=== PATIENT | female | born 1960 | race Caucasian/White ===

== ENCOUNTER 2023-05-25 09:47 | Emergency (ER) | payer MEDICAID, MEDICARE ==
[2023-05-25 10:11] VITALS: BP 132/86; O2SAT 96
--- NOTE | 2023-05-25 10:36 | XRAY Report ---
PROCEDURE: Shoulder 3 View RT INDICATIONS: trauma TECHNIQUE: 3 views of the shoulder were acquired. COMPARISON: None. FINDINGS: Bones: No fractures or dislocations. No suspicious bony lesions. Visualized ribs appear intact. Degenerative changes of the acromioclavicular and glenohumeral joints. Acromioclavicular and coracocl avicular intervals are maintained. Soft tissues: No suspicious soft tissue calcifications. The visualized lungs are within normal limi ts. IMPRESSION: Right shoulder without acute fracture or dislocation. If there is persistent clinical concern for a radiographically occult fracture, recommend immobilizat ion and repeat imaging in 10 to 14 days. Reviewed by: Curt Wolff MD on 05/25/2023 10:34 AM PDT Approved by: Curt Wolff MD on 05/25/2023 10:34 AM PDT Station ID: [id number]
[2023-05-25] MEDS ORDERED: LIDOCAINE PATCH 5% TOP STA (10:41)
[2023-05-25] MEDS ORDERED: oxyCODONE 5 MG TABLET PO STA (10:41)
--- NOTE | 2023-05-25 10:44 | ED Physician Documentation ---
PD HPI UPPER EXT INJURY - Stated complaint Stated Complaint: RT SHOULD PX - Chief complaint Chief Complaint: Ext Problem - History obtained from History obtained from: Patient - Additonal information Additional information: Patient is a 63-year-old female with recent diagnosis of lung cancer presenting for evaluation of right shoulder pain that has been present for the past 4-1/2 days. Patient states that she recently moved in with her son and was shampooing all with her carpets just prior to the onset of pain. She states that it was taking a long time because there is a lot of carpets and they were very dirty. She states since that time she has had pain in the right shoulder. She has tried ibuprofen and acetaminophen without any improvement. No known prior injuries to this area. No chest pain or shortness of air. No falls or head injuries. 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 - Past Surgical History Past Surgical History: Yes General: Splenectomy - Present Medications Home Medications: Ambulatory Orders Medication Instructions Recorded Confirmed Lidocaine Patch 5% [Lidoderm Patch] 1 patch TOP DAILY PRN #10 patch 05/25/23 Oxycodone HCl/Acetaminophen 1 each PO Q6H PRN #12 tablet 05/25/23 [Percocet 5-325 mg Tablet] - Allergies Allergies/Adverse Reactions: Allergies Allergy/AdvReac Type Severity Reaction Status Date / Time No Known Drug Allergies Allergy Verified 05/25/23 10:03 - Social History Does the pt smoke?: Yes Smoking Status: Current every day smoker Does the pt drink ETOH?: No Does the pt have substance abuse?: No - Immunizations Immunizations are current?: Yes PD ED PE NORMAL - General General: Alert and oriented X 3, No acute distress, Well developed/nourished - HEENT HEENT: Atraumatic, Moist mucous membranes, Pharynx benign - Neck Neck: Supple, no meningeal sign, No bony TTP - Cardiac Cardiac: RRR, Strong equal pulses - Respiratory Respiratory: No respiratory distress, Clear bilaterally - Extremities Extremities: No deformity, No edema, Other (Pain on range of motion of the right shoulder but able to abduct to at least 90 degrees and to touch the opposite shoulder with her right hand as well as range of motion behind her back) - Neuro Neuro: Alert and oriented X 3, No motor deficit, Normal speech Results - Vitals Vitals: Vital Signs - 24 hr 05/25/23 09:55 Temperature 36.9 C Heart Rate 90 Respiratory 15 Rate Blood Pressure 132/86 H O2 Saturation 96 Oxygen O2 Source Room air PD Medical Decision Making - ED course Complexity details: reviewed results, re-evaluated patient, d/w patient ED course: Patient is a 63-year-old female presenting for evaluation of right shoulder pain after shampooing her carpets. She has good range of motion with no deformities to suggest dislocation. She does have pain however on movements. Good distal pulses. No spinal tenderness. An x-ray was obtained which I reviewed and see no fracture or dislocation. Patient counseled on continued supportive care as well as need for follow-up with primary care if her symptoms or not improving. Patient also advised on strict return precautions. Departure - Departure Disposition: 01 Home, Self Care Clinical Impression: Right shoulder strain Condition: Stable Instructions: ED Sprain Shoulder Prescriptions: Lidocaine Patch 5% [Lidoderm Patch] 1 patch TOP DAILY PRN #10 patch PRN Reason: pain Oxycodone HCl/Acetaminophen [Percocet 5-325 mg Tablet] 1 each PO Q6H PRN #12 tablet PRN Reason: pain Comments: Your x-ray does not show a broken or out of place bone in regards to your right shoulder. You have likely strained the muscles and ligaments in this area from recent activity. I am giving you a sling to use for comfort but I also do not want you to keep the arm in the sling all the time. You should get your arm out of the sling several times a day to move it around To avoid a frozen shoulder. I also sent some pain medication to [facility] in [place] along with lidocaine patches. Please have close follow-up with your primary care provider. Return to the emergency department with any worsening symptoms such as weakness. I am prescribing a short course of narcotic pain medication for you. These are potentially dangerous and addictive medications that should be used carefully. These medications may constipate you. Take an [id number] stool softener (docusate) twice daily with plenty of water while taking these medications. If you go 24 hours without a bowel movement, take [id number] miralax, per package instructions. Do not drink or drive while taking these medications. If you received narcotic or sedating medications while in the emergency department, do not drive for 24 hours. Store this medication in a safe, secure place and out of reach of children. It is a violation of federal law to give or sell this medication to another person or to use in a manner other than prescribed. The ED will not refill narcotic prescriptions, including prescriptions lost or stolen. To dispose of unwanted medications: 1. [facility] at [address] in [place] has a medication drop box. They accept prescription medications (in pill form) Monday through Monday 9:00 a.m. to 5:00 p.m. 2. The [facility] [employer] accepts prescription medications (in pill form only) for disposal year round. Call for more information. 3. Contact the [facility] for the next [facility] sponsored prescription drug collection event. , [phone], or [phone]; Note that many narcotic pain relievers also contain Tylenol/acetaminophen. Please ensure that your total dose of acetaminophen from all sources does not exceed 3 g (3000 mg) per day. Forms: PCP List Discharge Date/Time: 05/25/23 11:10
== END 2023-05-25 11:10 | disposition home or self-care (01) ==
LOC: ED 09:47
DX: S46.911A Strain of unspecified muscle, fascia and tendon at shoulder and upper arm level, right arm, initial encounter (principal); X50.3XXA Overexertion from repetitive movements, initial encounter; Y93.E5 Activity, floor mopping and cleaning; Y92.009 Unspecified place in unspecified non-institutional (private) residence as the place of occurrence of the external cause; F17.200 Nicotine dependence, unspecified, uncomplicated
CPT/HCPCS: 73030; 99283; A9270

== ENCOUNTER 2023-10-05 08:12 | Day surgery (SDC) | payer MEDICARE ==
[2023-10-05] MEDS: LACTATED RINGERS 1,000 ML IV ONE (08:23)
[2023-10-05 08:38] VITALS: O2SAT 100
[2023-10-05] MEDS ORDERED: KETOROLAC 0.45% OPHTH DROPS ONE (08:48)
[2023-10-05] MEDS ORDERED: PHENYLEPHRINE 2.5% OPHTH 2 ML DROPS ONE (08:51)
[2023-10-05] MEDS ORDERED: PROPARACAINE 0.5% OPHTH DROPS 15 ML ONE (08:51)
--- NOTE | 2023-10-05 09:30 | ANESTHESIA ---
Pre-Anesthesia VS, & Labs - Diagnosis nuclear cataract - Procedure R extraction cataract w IOL Vital Signs: Temp Pulse Resp BP Pulse Ox O2 Flow Rate 36.7 C 76 16 135/96 H 100 10/05/23 08:30 10/05/23 08:30 10/05/23 08:30 10/05/23 08:30 10/05/23 08:30 Height: 5 ft 7 in Weight (kg): 63.6 kg Body Mass Index: 21.9 BMI Classification: Normal - NPO >8 hours - Is Patient ?: No - Lab Results Lab results reviewed: Yes Home Medications and Allergies Home Medications: Ambulatory Orders Levothyroxine [Synthroid] 1 tab PO DAILY 10/04/23 Melatonin [Melatoninmax] 1 tab PO DAILY 10/04/23 Varenicline Tartrate [Chantix] 1 tab PO DAILY 10/04/23 Zolpidem [Ambien] 1 tab PO DAILY 10/04/23 Levothyroxine [Synthroid] 1 tab PO DAILY 10/04/23 Melatonin [Melatoninmax] 1 tab PO DAILY 10/04/23 Varenicline Tartrate [Chantix] 1 tab PO DAILY 10/04/23 Zolpidem [Ambien] 1 tab PO DAILY 10/04/23 Allergies/Adverse Reactions: Allergies Allergy/AdvReac Type Severity Reaction Status Date / Time No Known Drug Allergies Allergy Verified 10/04/23 15:14 Anes History & Medical History - Anesthetic History Anesthesia Complications: reports: No previous complications Family history of Anesthesia Complications: Denies Family history of Malignant Hyperthermia: Denies - Medical History Cardiovascular: reports: None Pulmonary: reports: COPD, Other (stage 4 lung CA) Gastrointestinal: reports: None Urinary: reports: None Musculoskeletal: reports: None Endocrine/Autoimmune: reports: HyPOthyroidism Skin: reports: None Smoking Status: Current every day smoker History of Cancer?: Yes (current lung L) - Surgical History General: reports: Splenectomy Eyes Ears Nose Throat (EENT): reports: Tonsil/Adenoidectomy Exam General: Alert, Oriented x3, Cooperative Dental: Dentures full Upper, Dentures full Lower Mouth Openin Fingerbreadth Neck Mobility: Normal Mallampati classification: II Thyromental Distance: 4-6 cm Respiratory: Lungs clear, Decreased breath sounds Cardiovascular: Regular rate Neurological: Normal speech Mental/Cognitive Status: Alert/Oriented X3, Normal for patient Cognitive Status: Within normal limits Plan Anesthesia Type: MAC Consent for Procedure(s) Verified and Reviewed: Yes Code Status: Attempt Resuscitation ASA classification: 3-Severe systemic disease Is this case an emergency?: No
[2023-10-05] MEDS ORDERED: MIDAZOLAM 2 MG/2 ML VIAL ONE (09:36)
[2023-10-05] MEDS ORDERED: EPINEPHrine 1 MG/ML AMP ONE (09:39)
[2023-10-05] MEDS ORDERED: BRIMONIDINE 0.2% OPHTH DROPS 5 ML ONE (09:39)
[2023-10-05] MEDS ORDERED: TIMOLOL 0.5% OPHTH DROPS ONE (09:39)
[2023-10-05] MEDS ORDERED: BSS/LIDOCAINE/EPINEPHRINE 1 ML VIAL ONE (09:39)
[2023-10-05] MEDS ORDERED: TRIAMCIN/MOXIFLOX OPHTHALMIC 0.6 ML VIAL IO ONE (09:39)
[2023-10-05] MEDS: BRIMONIDINE 0.2% OPHTH DROPS 5 ML OPTH ONE (09:41)
[2023-10-05] MEDS: EPINEPHrine 1 MG/ML AMP IR ONE (09:44)
[2023-10-05] MEDS: VANCOMYCIN OPHTH (TOPICAL) 10 MG/ML SYRINGE TOP ONE (09:45)
[2023-10-05] MEDS: BSS/LIDOCAINE/EPINEPHRINE 1 ML SYRINGE IO ONE (09:45)
[2023-10-05] MEDS: TIMOLOL 0.5% OPHTH DROPS OPTH ONE (09:45)
[2023-10-05] MEDS: PROPARACAINE 0.5% OPHTH DROPS 15 ML EACHEYE ONE (09:45)
[2023-10-05] MEDS: TRIAMCIN/MOXIFLOX OPHTHALMIC 0.6 ML VIAL IO ONE (09:45)
[2023-10-05] MEDS: LACTATED RINGERS 500 ML IV ONE (10:12)
--- NOTE | 2023-10-05 10:23 | OPERATIVE REPORT ---
Operative Report - Other Other Information/Narrative: Date of Surgery: 10/05/23 Preop Dx: Visually significant cataract right eye. Cataract surgery was performed in the left eye in 2014 elsewhere. Postop Dx: Same Procedure: Phacoemulsification with posterior chamber intraocular lens implant right eye Surgeon: Dr. Calvin Packer Anesthesia: Monitored anesthesia care Complications: None Operative Indications: This is a 63-year-old F with progressive vision loss in the right eye due to 3+ nuclear sclerotic cataract. Best corrected visual acuity was 20/50 with glare to 20/400 vision in the right eye. Indications for surgery were: - Overall decrease in vision - Difficulty seeing words on a computer screen - Difficulty reading - Difficulty seeing words, closed captions, or game scores on TV - Difficulty seeing street signs - Difficulty driving in low light or at night - Difficulty driving at night because of headlights from other vehicles - Difficulty with glare or bright lights in any situation The patient was consented at length concerning the risks and benefits of cataract surgery after which the patient expressed a desire to proceed with surgery. Operative Procedure: The patient was taken into OR#3 and placed under monitored anesthesia care. A surgical time-out was conducted confirming correct patient, correct procedure, and correct surgical site. The patient was given topical anesthesia and then prepped and draped in the usual sterile fashion. The eye was entered at the 6 and 3 oclock positions. Intracameral Shugarcaine was injected into the anterior chamber followed by a dispersive viscoelastic. A continuous-tear curvilinear capsulorhexis was performed. The nucleus was hydrodissected and phacoemulsified. The cortex was evacuated using automated infusion and aspiration. A cohesive viscoelastic was injected into the capsular bag and a 21.5 diopter intraocular lens was inserted into the bag. Infusion and aspiration were used to evacuate the viscoelastic materials from the eye. The wounds were hydrated and the eye inflated to physiologic pressure using balanced salt solution. Approximately 0.25ml of a mixture of triamcinolone and moxifloxacin was injected trans-sclerally into the vitreous in the inferotemporal quadrant using a 30 gauge cannula. An additional 0.25ml of a mix ture of triamcinolone and moxifloxacin was injected subconjunctivally in the superior quadrant for infection and inflammation prophylaxis. Wound integrity was checked with Weck-Rachel sponges. The patient was taken from the operating room in good condition and given post-op instructions.
--- NOTE | 2023-10-05 10:49 | ANESTHESIA POST OP EVALUATION ---
Anesthesia Post Eval - Post Anesthesia Eval Vitals: Last Vital Signs Temp 36.7 C 10/05/23 08:30 Pulse 76 10/05/23 08:30 Resp 16 10/05/23 08:30 BP 135/96 H 10/05/23 08:30 Pulse Ox 100 10/05/23 08:30 O2 Flow Rate CV Function Including HR & BP: Stable Pain Control: Satisfactory Nausea & Vomiting: Negative Mental Status: Baseline Respiratory Status: Airway Patent Hydration Status: Satisfactory Anesthesia Complications: None
[2023-10-05 10:54] VITALS: BP 112/61
== END 2023-10-05 08:13 | disposition home or self-care (01) ==
LOC: SDS 08:12
PROVIDERS: ATTEND Ophthalmology
DX: H25.11 Age-related nuclear cataract, right eye (principal); C34.90 Malignant neoplasm of unspecified part of unspecified bronchus or lung; J44.9 Chronic obstructive pulmonary disease, unspecified; Z87.891 Personal history of nicotine dependence; Z98.42 Cataract extraction status, left eye
CPT/HCPCS: 66984; A9270; J3490; J7120